=== PATIENT | male | born 1950 | race Caucasian/White ===

== ENCOUNTER 2021-12-08 22:25 | Inpatient (IN) | payer BC ==
[2021-12-08 23:35] LABS: BASO % 0.6 % (0-2.0); EOS % 9.9 % (0-4.5); HEMATOCRIT 45.6 % (35.4-49); HEMOGLOBIN 15.4 GM/dL (11.7-16.9); LYMPH % 35.7 % (8-40); MCH 31.7 pg (25.7-33.7); MCHC 33.8 g/dl (32.0-35.9); MEAN CELL VOLUME 93.9 fl (80-96); MEAN PLT VOLUME 6.6 fl (7.5-11.1); MONO % 9.3 % (3.8-10.2); NEUT % 44.5 % (42.8-82.8); PLATELET COUNT 145 10^3/uL (134-434); RBC 4.85 M/mm3 (4.00-5.60); RDW 13.3 % (11.9-15.9); WHITE BLOOD COUNT 7.8 K/mm3 (4.0-10.0)
[2021-12-08 23:58] LABS: URINE APPEARANCE CLEAR; URINE BILIRUBIN NEGATIVE (NEGATIVE); URINE COLOR YELLOW; URINE GLUCOSE (UA) NEGATIVE (NEGATIVE); URINE KETONE NEGATIVE (NEGATIVE); URINE LEUK ESTERASE NEGATIVE (NEGATIVE); URINE NITRITE NEGATIVE (NEGATIVE); URINE PROTEIN NEGATIVE (NEGATIVE); URINE UROBILINOGEN 0.2 mg/dL (0.2-1.0)
[2021-12-09] LABS: CALCIUM 8.8 mg/dL (8.5-10.1)
[2021-12-09 00:01] LABS: ALBUMIN 4.2 g/dl (3.4-5.0)
[2021-12-09 00:04] LABS: CREATININE 1.1 mg/dL (0.55-1.3)
[2021-12-09 00:05] LABS: BILIRUBIN,TOTAL 0.6 mg/dL (0.2-1); METHADONE, UR NEGATIVE (NEGATIVE); PHENCYCLIDINE,URINE NEGATIVE (NEGATIVE); URINE BENZODIAZEPINES NEGATIVE (NEGATIVE)
[2021-12-09 00:06] LABS: COCAINE, UR NEGATIVE (NEGATIVE); OPIATES, URI NEGATIVE (NEGATIVE); URINE AMPHETAMINES NEGATIVE (NEGATIVE); URINE BARBITURATES NEGATIVE (NEGATIVE)
[2021-12-09] MEDS ORDERED: LORazepam 2 MG/ML SDV VIAL IVPUSH ONE (01:30)
[2021-12-09] MEDS ORDERED: HALOPERIDOL LACTATE 5 MG/ML IM ONE (02:25)
[2021-12-09] MEDS ORDERED: HALOPERIDOL LACTATE 5 MG/ML ONE (02:34)
[2021-12-09] MEDS ORDERED: FOLIC ACID INJECTION - 1 MG, THIAMINE HCL 100 MG, MULTIVIT INJECTION ADULT 10 ML in SOD... IVPB ONE (09:15)
[2021-12-09] MEDS ORDERED: TAMSULOSIN HCL 0.4 MG CAP ONE (09:27)
[2021-12-09] MEDS ORDERED: ENOXAPARIN NA (PORCINE) 40 MG/0.4 ML DISP.SYRIN SQ ONE (09:27)
[2021-12-09] MEDS: ENOXAPARIN NA (PORCINE) 40 MG/0.4 ML DISP.SYRIN SQ SCH (09:28)
[2021-12-09] MEDS: TAMSULOSIN HCL 0.4 MG CAP PO SCH (09:28)
[2021-12-09] MEDS: LORazepam 1 MG TABLET PO SCH ×3 (10:13→22:04)
[2021-12-09] MEDS ORDERED: LORazepam 1 MG TABLET ONE ×4 (10:13→21:56)
[2021-12-09] MEDS: LORazepam 1 MG TABLET PO PRN (14:35)
[2021-12-10] MEDS ORDERED: LORazepam 1 MG TABLET ONE (03:05)
[2021-12-10] MEDS: LORazepam 1 MG TABLET PO PRN (03:11)
[2021-12-10] MEDS: LORazepam 1 MG TABLET PO SCH ×4 (06:13→22:49)
[2021-12-10 07:16] VITALS: BMI 25.0
[2021-12-10 08:13] LABS: BASO % 0.5 % (0-2.0); EOS % 5.8 % (0-4.5); HEMATOCRIT 40.2 % (35.4-49); HEMOGLOBIN 13.5 GM/dL (11.7-16.9); MCH 31.3 pg (25.7-33.7); MCHC 33.5 g/dl (32.0-35.9); MEAN CELL VOLUME 93.3 fl (80-96); MEAN PLT VOLUME 7.2 fl (7.5-11.1); MONO % 11.8 % (3.8-10.2); NEUT % 53.9 % (42.8-82.8); PLATELET COUNT 111 10^3/uL (134-434); RDW 12.9 % (11.9-15.9); WHITE BLOOD COUNT 6.5 K/mm3 (4.0-10.0)
[2021-12-10 08:38] LABS: BLOOD UREA NITROGEN 11.9 mg/dL (7-18); CALCIUM 8.4 mg/dL (8.5-10.1)
[2021-12-10 08:39] LABS: ALBUMIN 3.6 g/dl (3.4-5.0); MAGNESIUM 1.9 mg/dL (1.8-2.4)
[2021-12-10 08:41] LABS: PHOSPHOROUS 3.1 mg/dL (2.5-4.9)
[2021-12-10 08:42] LABS: CREATININE 0.8 mg/dL (0.55-1.3)
[2021-12-10 08:43] LABS: BILIRUBIN,TOTAL 1.4 mg/dL (0.2-1); TOT PROT 6.6 g/dl (6.4-8.2)
[2021-12-10] MEDS: THIAMINE HCL 100 MG TABLET (FP) PO SCH (09:39)
[2021-12-10] MEDS: ENOXAPARIN NA (PORCINE) 40 MG/0.4 ML DISP.SYRIN SQ SCH (09:39)
[2021-12-10] MEDS: FOLIC ACID 1 MG TABLET (FP) PO SCH (09:39)
[2021-12-10] MEDS: TAMSULOSIN HCL 0.4 MG CAP PO SCH (09:39)
[2021-12-10] MEDS ORDERED: FOLIC ACID INJECTION - 1 MG, THIAMINE HCL 100 MG, MULTIVIT INJECTION ADULT 10 ML in SOD... IVPB ONE (12:18)
[2021-12-10] MEDS: LORazepam 2 MG/ML SDV VIAL IVPUSH PRN (18:07)
[2021-12-10] MEDS ORDERED: LORazepam 2 MG/ML SDV VIAL IVPUSH ONE (19:01)
[2021-12-10] MEDS ORDERED: LACTATED RINGERS SOLUTION 1,000 ML/1,000 ML INFUS.BAG IV SCH (20:30)
[2021-12-11] MEDS: LACTATED RINGERS SOLUTION 1,000 ML/1,000 ML INFUS.BAG IV SCH ×3 (00:37→13:54)
[2021-12-11] MEDS: LORazepam 1 MG TABLET PO SCH ×4 (05:18→22:30)
[2021-12-11] MEDS: ENOXAPARIN NA (PORCINE) 40 MG/0.4 ML DISP.SYRIN SQ SCH (10:17)
[2021-12-11] MEDS: FOLIC ACID 1 MG TABLET (FP) PO SCH (10:18)
[2021-12-11] MEDS: TAMSULOSIN HCL 0.4 MG CAP PO SCH (10:18)
[2021-12-11] MEDS: THIAMINE HCL 100 MG TABLET (FP) PO SCH ×2 (10:18→21:11)
[2021-12-11 10:23] LABS: HEMATOCRIT 39.6 % (35.4-49); HEMOGLOBIN 13.7 GM/dL (11.7-16.9); MCHC 34.5 g/dl (32.0-35.9); MEAN CELL VOLUME 92.8 fl (80-96); MEAN PLT VOLUME 7.6 fl (7.5-11.1); PLATELET COUNT 102 10^3/uL (134-434); RBC 4.27 M/mm3 (4.00-5.60); RDW 12.8 % (11.9-15.9); WHITE BLOOD COUNT 9.4 K/mm3 (4.0-10.0)
[2021-12-11 10:43] LABS: CALCIUM 8.9 mg/dL (8.5-10.1)
[2021-12-11 10:44] LABS: ALBUMIN 3.7 g/dl (3.4-5.0); BLOOD UREA NITROGEN 7.4 mg/dL (7-18); MAGNESIUM 1.9 mg/dL (1.8-2.4)
[2021-12-11 10:46] LABS: BILIRUBIN,DIRECT 0.4 mg/dL (0.0-0.2); CREATININE 0.8 mg/dL (0.55-1.3)
[2021-12-11 10:47] LABS: PHOSPHOROUS 2.3 mg/dL (2.5-4.9)
[2021-12-11 10:48] LABS: BILIRUBIN,TOTAL 1.4 mg/dL (0.2-1)
[2021-12-11] MEDS ORDERED: POTASSIUM CHLORIDE ORAL LIQUID 20 MEQ/15 ML PO ONE (11:35)
[2021-12-11 13:51] LABS: URIC ACID 5.6 mg/dL (2.6-7.2)
[2021-12-11] MEDS: MULTIVITAMINS (DAILY MVI) TABLET (FP) PO SCH (13:54)
[2021-12-11] MEDS: LORazepam 2 MG/ML SDV VIAL IVPUSH PRN ×2 (14:56→19:46)
[2021-12-11] MEDS ORDERED: NAPH,MB-DB/K PH,MBDB POWDER PACKET PO ONE (16:53)
[2021-12-12] MEDS ORDERED: LORazepam 0.5 MG TABLET PO PRN
[2021-12-12] MEDS: LORazepam 2 MG/ML SDV VIAL IVPUSH PRN ×2 (00:15→08:12)
[2021-12-12] MEDS: LORazepam 0.5 MG TABLET PO SCH ×3 (05:15→17:17)
[2021-12-12 08:58] LABS: HEMATOCRIT 40.3 % (35.4-49); HEMOGLOBIN 13.5 GM/dL (11.7-16.9); MCH 31.3 pg (25.7-33.7); MCHC 33.5 g/dl (32.0-35.9); MEAN CELL VOLUME 93.3 fl (80-96); MEAN PLT VOLUME 7.9 fl (7.5-11.1); PLATELET COUNT 101 10^3/uL (134-434); RBC 4.32 M/mm3 (4.00-5.60); RDW 12.9 % (11.9-15.9); WHITE BLOOD COUNT 8.2 K/mm3 (4.0-10.0)
[2021-12-12 09:36] LABS: BLOOD UREA NITROGEN 9.6 mg/dL (7-18); CALCIUM 8.6 mg/dL (8.5-10.1)
[2021-12-12 09:37] LABS: ALBUMIN 3.6 g/dl (3.4-5.0)
[2021-12-12 09:41] LABS: BILIRUBIN,TOTAL 1.5 mg/dL (0.2-1); CREATININE 0.8 mg/dL (0.55-1.3); PHOSPHOROUS 3.9 mg/dL (2.5-4.9)
[2021-12-12 09:43] LABS: TOT PROT 6.8 g/dl (6.4-8.2)
[2021-12-12] MEDS: POLYETHYLENE GLYCOL (HEALTHYLAX) 3350 17 GM PACKET PO SCH (10:00)
[2021-12-12] MEDS: MULTIVITAMINS (DAILY MVI) TABLET (FP) PO SCH (10:00)
[2021-12-12] MEDS: THIAMINE HCL 100 MG TABLET (FP) PO SCH ×2 (10:00→21:23)
[2021-12-12] MEDS: FOLIC ACID 1 MG TABLET (FP) PO SCH (10:00)
[2021-12-12] MEDS: TAMSULOSIN HCL 0.4 MG CAP PO SCH (10:00)
[2021-12-12] MEDS: ENOXAPARIN NA (PORCINE) 40 MG/0.4 ML DISP.SYRIN SQ SCH (10:01)
[2021-12-12] MEDS: LACTATED RINGERS SOLUTION 1,000 ML/1,000 ML INFUS.BAG IV SCH (15:58)
[2021-12-12] MEDS ORDERED: POTASSIUM CHLORIDE ORAL LIQUID 20 MEQ/15 ML PO ONE (17:06)
[2021-12-12] MEDS ORDERED: DICYCLOMINE HCL 10 MG CAPSULE PO PRN (17:43)
[2021-12-12] MEDS ORDERED: BISMUTH SUBSALICYLATE 524 MG/30 ML PO PRN (17:43)
[2021-12-12] MEDS ORDERED: MAGNESIUM HYDROX 2400MG/30ML ORAL SUSPENSION 30 ML CUP PO PRN (17:43)
[2021-12-12] MEDS ORDERED: ONDANSETRON *ODT* 4 MG TABLET SL PRN (17:43)
[2021-12-12] MEDS ORDERED: IBUPROFEN 400 MG TABLET (FP) PO PRN (17:43)
[2021-12-12] MEDS ORDERED: LORazepam 1 MG TABLET PO PRN (17:43)
[2021-12-12] MEDS ORDERED: METHOCARBAMOL 500 MG TABLET PO PRN (17:43)
[2021-12-12] MEDS ORDERED: MAG HYDROX/AL HYDROX/SIMETH 30 ML UNIT-DOSE CUP PO PRN (17:43)
[2021-12-12] MEDS ORDERED: BENZOCAINE/MENTHOL (CHLORASEPTIC ) LOZENGE MM PRN (17:43)
[2021-12-12] MEDS ORDERED: LOPERAMIDE HCL 2 MG CAPSULE PO PRN (17:43)
[2021-12-12] MEDS ORDERED: IBUPROFEN 600 MG TABLET (FP) PO PRN (17:43)
[2021-12-12] MEDS ORDERED: MAGNESIUM CITRATE 300 ML BOTTLE PO PRN (17:43)
[2021-12-12] MEDS ORDERED: NICOTINE 10 MG CARTRIDGE (INHALER) IH PRN (17:43)
[2021-12-12] MEDS ORDERED: LORazepam 1 MG TABLET PO SCH (18:00)
[2021-12-12] MEDS: hydrOXYzine PAMOATE 25 MG CAPSULE (FP) PO SCH ×2 (18:21→21:23)
[2021-12-12] MEDS: PRENATAL VITAMINS W/ FOLIC ACID TABLET (FP) PO SCH (18:48)
[2021-12-12] MEDS: MELATONIN 5 MG TABLETS PO SCH (21:23)
[2021-12-12] MEDS ORDERED: THIAMINE HCL 100 MG TABLET (FP) PO SCH (22:00)
[2021-12-13] MEDS ORDERED: LORazepam 0.5 MG TABLET PO ONE (05:00)
[2021-12-13] MEDS: hydrOXYzine PAMOATE 25 MG CAPSULE (FP) PO SCH ×5 (05:53→21:28)
[2021-12-13 09:24] LABS: HEMATOCRIT 39.8 % (35.4-49); HEMOGLOBIN 13.2 GM/dL (11.7-16.9); MCH 31.2 pg (25.7-33.7); MCHC 33.3 g/dl (32.0-35.9); MEAN CELL VOLUME 93.9 fl (80-96); MEAN PLT VOLUME 7.9 fl (7.5-11.1); PLATELET COUNT 105 10^3/uL (134-434); RBC 4.24 M/mm3 (4.00-5.60); WHITE BLOOD COUNT 8.1 K/mm3 (4.0-10.0)
[2021-12-13] MEDS: ENOXAPARIN NA (PORCINE) 40 MG/0.4 ML DISP.SYRIN SQ SCH (09:35)
[2021-12-13] MEDS: THIAMINE HCL 100 MG TABLET (FP) PO SCH ×2 (09:35→21:28)
[2021-12-13] MEDS: TAMSULOSIN HCL 0.4 MG CAP PO SCH (09:35)
[2021-12-13] MEDS: PRENATAL VITAMINS W/ FOLIC ACID TABLET (FP) PO SCH (09:35)
[2021-12-13] MEDS: FOLIC ACID 1 MG TABLET (FP) PO SCH (09:35)
[2021-12-13] MEDS: POLYETHYLENE GLYCOL (HEALTHYLAX) 3350 17 GM PACKET PO SCH (09:35)
[2021-12-13 10:09] LABS: ALBUMIN 3.3 g/dl (3.4-5.0); CALCIUM 8.5 mg/dL (8.5-10.1)
[2021-12-13 10:10] LABS: MAGNESIUM 2.1 mg/dL (1.8-2.4)
[2021-12-13 10:13] LABS: CREATININE 0.8 mg/dL (0.55-1.3)
[2021-12-13 10:14] LABS: BILIRUBIN,TOTAL 1.4 mg/dL (0.2-1); TOT PROT 6.3 g/dl (6.4-8.2)
[2021-12-13] MEDS: LACTATED RINGERS SOLUTION 1,000 ML/1,000 ML INFUS.BAG IV SCH (14:37)
[2021-12-13] MEDS: MELATONIN 5 MG TABLETS PO SCH (21:28)
[2021-12-14] MEDS ORDERED: LORazepam 1 MG TABLET PO SCH (05:00)
[2021-12-14] MEDS: hydrOXYzine PAMOATE 25 MG CAPSULE (FP) PO SCH ×5 (06:37→21:40)
[2021-12-14] MEDS: POLYETHYLENE GLYCOL (HEALTHYLAX) 3350 17 GM PACKET PO SCH (09:22)
[2021-12-14] MEDS: THIAMINE HCL 100 MG TABLET (FP) PO SCH ×2 (09:22→21:41)
[2021-12-14] MEDS: TAMSULOSIN HCL 0.4 MG CAP PO SCH (09:22)
[2021-12-14] MEDS: PRENATAL VITAMINS W/ FOLIC ACID TABLET (FP) PO SCH (09:22)
[2021-12-14] MEDS: FOLIC ACID 1 MG TABLET (FP) PO SCH (09:23)
[2021-12-14] MEDS: ENOXAPARIN NA (PORCINE) 40 MG/0.4 ML DISP.SYRIN SQ SCH (09:23)
[2021-12-14] MEDS ORDERED: LORazepam 1 MG TABLET PO ONE (12:35)
[2021-12-14] MEDS: LACTATED RINGERS SOLUTION 1,000 ML/1,000 ML INFUS.BAG IV SCH (12:54)
[2021-12-14] MEDS: MELATONIN 5 MG TABLETS PO SCH (21:40)
[2021-12-15] MEDS ORDERED: LORazepam 0.5 MG TABLET PO PRN
[2021-12-15] MEDS ORDERED: LORazepam 0.5 MG TABLET PO SCH (05:00)
[2021-12-15] MEDS: hydrOXYzine PAMOATE 25 MG CAPSULE (FP) PO SCH ×2 (06:43→09:23)
[2021-12-15 07:04] VITALS: RESP 20
[2021-12-15] MEDS: TAMSULOSIN HCL 0.4 MG CAP PO SCH (08:16)
[2021-12-15] MEDS: THIAMINE HCL 100 MG TABLET (FP) PO SCH (09:21)
[2021-12-15] MEDS: FOLIC ACID 1 MG TABLET (FP) PO SCH (09:22)
[2021-12-15] MEDS: ENOXAPARIN NA (PORCINE) 40 MG/0.4 ML DISP.SYRIN SQ SCH (09:22)
[2021-12-15] MEDS: POLYETHYLENE GLYCOL (HEALTHYLAX) 3350 17 GM PACKET PO SCH (09:22)
[2021-12-15] MEDS: PRENATAL VITAMINS W/ FOLIC ACID TABLET (FP) PO SCH (09:22)
[2021-12-15] MEDS ORDERED: HYDROCORTISONE 2.5% TOPICAL CREAM 30 GM TUBE PR PRN (11:36)
[2021-12-15] MEDS ORDERED: BACITRACIN 15 GM TUBE TOPICAL OINTMENT TP SCH (11:45)
[2021-12-15] MEDS ORDERED: PHENYLEPHRINE HCL/COCOA BUTTER SUPPOSITORY RC PRN (11:50)
[2021-12-15 13:27] VITALS: BP 144/90; PULSE 71; TEMP 97.7
[2021-12-16] MEDS ORDERED: LORazepam 0.5 MG TABLET PO ONE (05:00)
== END 2021-12-15 13:51 | disposition home or self-care (01) | DRG 897 ==
LOC: JER 22:25 → JERBED 12-09 02:47 → J8W 12-10 05:35
PROVIDERS: ADMIT Hospitalist
DX: F10.230 Alcohol dependence with withdrawal, uncomplicated (principal); R45.851 Suicidal ideations; I45.2 Bifascicular block; M62.82 Rhabdomyolysis; F10.220 Alcohol dependence with intoxication, uncomplicated; I44.7 Left bundle-branch block, unspecified; R07.9 Chest pain, unspecified; N40.0 Benign prostatic hyperplasia without lower urinary tract symptoms; G43.909 Migraine, unspecified, not intractable, without status migrainosus; E86.1 Hypovolemia; F39 Unspecified mood [affective] disorder; E78.5 Hyperlipidemia, unspecified
CPT/HCPCS: 0241U-QW; 36415; 70450-TC; 72125-TC; 76705-TC; 80053; 80307; 81003; 82248; 82550; 82553; 83735; 84100; 84443; 84484; 84550; 85025; 85027; 87086; 93005; 93010; 97116-GP; 97161-GP